=== PATIENT | female | born 1950 | race Caucasian/White ===

== ENCOUNTER 2020-12-25 18:14 | Emergency (ER) | payer OTHER ==
[~2020-12-25 18:14] MED LIST: BENICAR *OUT OF20 MG PO; DIOVAN40 MG PO; FLOMAX0.4 MG PO; LIPITOR20 MG PO; LOPRESSOR25 MG PO; NAPROXEN500 MG PO; NORCO 5-325 TA1 EACH PO
== END 2020-12-25 23:42 | disposition home or self-care (01) ==
LOC: FER 18:14
DX: R60.0 Localized edema (principal); I10 Essential (primary) hypertension; E78.00 Pure hypercholesterolemia, unspecified; Z88.1 Allergy status to other antibiotic agents; Z79.899 Other long term (current) drug therapy
CPT/HCPCS: 93971